=== PATIENT | female | born 1965 | race Caucasian/White ===

== ENCOUNTER 2016-09-08 12:27 | Emergency (ER) | payer MEDICAID ==
--- NOTE | 2016-09-08 12:56 | ED Physician Chart ---
Chief Complaint/HPI - Patient Information Date Seen:: 09/08/16 Time Seen:: 12:33 Chief Complaint:: RIGHT FLANK PAIN History of Present Illness:: THIS IS A 51 YO FEMALE WITH CONCERN ABOUT HER RIGHT FLANK PAIN AND LEFT SHOULDER PAIN WITHOUT NAUSEA OR VOMITING. SHE STATES THAT SHE TOOK SOME OF HER SISTERS ANTIBIOTICS AND MOTRIN WHICH MADE HER FEEL BETTER. SHE IS HAVING FLANK PAIN THAT RADIATES TO HER BACK. SHE DENIES FEVER AND COUGH. Allergies:: Allergies Allergy/AdvReac Type Severity Reaction Status Date / Time No Known Allergies Allergy Verified 09/08/16 12:41 Vitals:: Vital Signs - 8 hr 09/08/16 12:27 Temp 97.5 F HR 87 RR 16 BP 119/81 O2 Sat % 99 Historian:: Patient Review:: Nurse's Note Reviewed Review of Systems - Review of Systems G/U: Other (FLANK PA) Musculoskeletal: Other (LEFT SHOULDER PAIN) Past Medical History - Past Medical History Obtainable: Yes Past Medical History: Other (CHRONIC NECK PAIN) Family Medical History - Family Member Mother History Unknown: Yes Physical Exam - Physical Examination General/Constitutional: Awake, Well-developed, well-nourished, Alert, No distress, GCS 15, Non-toxic appearing, Ambulatory Head: Atraumatic Eyes: Lids, conjuctiva normal, PERRL, EOMI Skin: Nl inspection, No rash, No skin lesions, No ecchymosis, Well hydrated, No lymphadenopathy ENMT: External ears, nose nl, Nasal exam nl, Lips, teeth, gums nl Neck: Full ROM w/o pain, No JVD, No nuchal rigidity, No bruit, No mass, No stridor Other Neck comments:: LEFT POSTERIOR CERVICAL AREA TENDERNESS. Respiratory: Nl effort/Exclusion, Clear to Auscultation, No Wheeze/Rhonchi/Rales Cardio Vascular: RRR, No murmur, gallop, rubs, NL S1 S2 GI: No tenderness/rebounding/guarding, No organomegaly, No hernia, Normal BS's, Nondistended, No mass/bruits, No McBurney tenderness Other comments:: TENDERNESS OF RIGHT FLANK Extremities: No tenderness or effusion, Full ROM, normal strength in all extremities, No edema, Normal digits & nails Neuro/Psych: Alert/oriented, DTR's symmetric, Normal sensory exam, Normal motor strength, Judgement/insight normal, Mood normal, Normal gait, No focal deficits Misc: normal gait, Normal back, No paraspinal tenderness Assessment - Assessment General Assessment: URINARY TRACT INFECTION ED Septic Shock - . Is Septic Shock (SBP<90, OR Lactate>4 mmol\L) present?: No - <6hrs of presentation: Vital Signs: Vital Signs - 8 hr 09/08/16 12:27 Temp 97.5 F HR 87 RR 16 BP 119/81 O2 Sat % 99
[2016-09-08 13:01] LABS: URINE BILIRUBIN NEGATIVE (NEGATIVE); URINE COLOR YELLOW; URINE GLUCOSE (UA) NEGATIVE (NEGATIVE); URINE KETONE NEGATIVE (NEGATIVE)
[2016-09-08 13:02] LABS: URINE BLOOD MODERATE (NEGATIVE); URINE PROTEIN TRACE mg/dL (NEGATIVE); URINE UROBILINOGEN 0.2 E.U./dL (0.2 - 1.0)
[2016-09-08 13:05] LABS: URINE BACTERIA MODERATE /hpf (NONE SEEN); URINE EPITHELIAL CELLS FEW /lpf (FEW)
[2016-09-08 13:09] LABS: % BASOPHILS 0.4 % (0.0-2.0); % EOSINOPHILS 0.1 % (0.0-5.0); % LYMPHOCYTES 16.5 % (20.0-50.0); HEMATOCRIT 33.6 % (35.0-45.0); HEMOGLOBIN 10.9 gm/dL (11.7-15.5); MEAN CELL VOLUME 77.4 fl (81-100); MEAN CORPUSCULAR HEMOGLOBIN 25.1 pg (27.0-31.0); MEAN CORPUSCULAR HGB CONC 32.4 pg (28.0-36.0); MEAN PLATELET VOLUME 9.7 fl; NEUTROPHILE ABSOLUTE 2.9 Th/cmm (1.8-8.0); PLATELET COUNT 236 Th/cmm (150-400); RED BLOOD COUNT 4.34 Mil/cmm (3.80-5.10); RED CELL DISTRIBUTION WIDTH 15.3 % (11.5-20.0); WHITE BLOOD COUNT 4.1 Th/cmm (4.8-10.8)
[2016-09-08 13:19] LABS: INR 1.01 (0.5-1.4); PROTHROMBIN TIME (TEST) 10.5 SECONDS (9.5-11.5)
[2016-09-08 13:23] LABS: ALB/GLOB RATIO 1.1 (1.0-1.8); ALKALINE PHOSPHATASE 513 U/L (34-104); ANION GAP 8.1 (7.0-16.0); BILIRUBIN,TOTAL 0.4 mg/dL (0.3-1.0); BUN - UREA NITROGEN 9 mg/dL (7-25); CALCIUM SERUM 10.8 mg/dL (8.6-10.3); CARBON DIOXIDE 24.5 mEq/L (21.0-31.0); CHLORIDE 103 mEq/L (98-107); CREATININE - SERUM 0.9 mg/dL (0.6-1.2); GLUCOSE 109 mg/dL (70-105); POTASSIUM SERUM 3.6 mEq/L (3.5-5.1); SGOT 397 U/L (13-39); SGPT/ALT 382 U/L (7-52); SODIUM SERUM 132 mEq/L (136-145)
[2016-09-08 14:09] LABS: AMPHETAMINE URINE NEGATIVE (NEGATIVE); BARBITURATES URINE NEGATIVE (NEGATIVE); METHADONE URINE NEGATIVE (NEGATIVE)
--- NOTE | 2016-09-08 14:21 | Diagnostic Imaging Report ---
Exam: CT examination of the pelvis HISTORY: Renal stone. Total DLP equals 384 CTDI equals 7.9 Findings: Multiple contiguous thin section of the abdomen pelvis obtained from lower lung base to pubic symphysis without the administration of intravenous or oral contrast material no prior studies available for comparison. The study demonstrates normal density of the parenchyma. There is evidence for a small cyst in the upper portion of the right lobe of liver measuring 2 cm diameter. The spleen is intact. The pancreas is normal. The gallbladder is normal. Kidneys demonstrate multiple nonobstructing calculi, comparison to old studies would be helpful. Large amount of fecal content is noted in the right colon. The uterus is enlarged with fibroid infiltration. There is a question of the left ovarian cyst which might represent dermoid cyst. Ultrasound examination of pelvis might be helpful. There is no evidence of diverticulitis. No free fluid is noted. The appendix is not visualized. IMPRESSION: 1. Small right lobe liver cyst. 2. Multiple nonobstructing renal calculi bilaterally comparison to old studies for be helpful. 3. Enlarged inhomogeneous uterus question fibroid infiltration. 4.Left ovarian dermoid cyst. 5. Large amount of fecal content
--- NOTE | 2016-09-08 14:24 | Diagnostic Imaging Report ---
Exam: CT examination cervical spine HISTORY: severe cervical disc disease. Total DLP equals 433 CTDI equals 19.4 Axial sections were obtained through the cervical spine region. Additional sagittal and coronal reformatted images are provided. No focal bony lesions are seen. Specifically, no fractures are identified. There is limited visualization of the margins of the cervical spinal cord. No obvious extradural soft tissue abnormalities are seen. The prevertebral soft tissues appear normal. Impression: No acute abnormalities. . If clinically indicated MRI examination might helpful.
== END 2016-09-08 14:40 | disposition home or self-care (01) ==
LOC: ER 12:27
DX: N39.0 Urinary tract infection, site not specified (principal)
CPT/HCPCS: 99285; 96372 ×2; 72125; 74176; 84484; 36415; 80307; 86592; 85025; 85610; 81001; 80320; 82140; 81025; 80053; J1885; J0696

== ENCOUNTER 2017-09-16 17:53 | Inpatient (IN) | payer SELFPAY ==
[2017-09-16 18:47] LABS: PROTHROMBIN TIME (TEST) 10.4 SECONDS (9.5-11.5)
--- NOTE | 2017-09-16 18:53 | ED Physician Chart ---
ED Chief Complaint/HPI - Patient Information Date Seen:: 09/16/17 Time Seen:: 18:10 Chief Complaint:: Chest Pain History of Present Illness:: onset x 12 hours of intermittent, dull, localized, MS type chest pain, cough, dyspnea, and anxiousness; no report of/pt denies trauma, H/As, S/T, neck pain, abd. pain, A/N/V/D/C, fever, chills, or urinary s/s Allergies:: Allergies Allergy/AdvReac Type Severity Reaction Status Date / Time No Known Allergies Allergy Verified 09/08/16 12:41 Vitals:: Vital Signs - 8 hr 09/16/17 09/16/17 18:11 18:17 Temp 99.1 F HR 75 71 RR 16 12 BP 117/73 111/65 O2 Sat % 100 97 Historian:: Patient Review:: Nurse's Note Reviewed ED Review of Systems - Review of Systems General/Constitutional: No fever, No chills, No weight loss, No weakness, No diaphoresis, No edema, No loss of appetite Skin: No skin lesions, No rash, No bruising Head: No headache, No light-headedness Eyes: No loss of vision, No pain, No diplopia ENT: No earache, No nasal drainage, No sore throat, No tinnitus Neck: No neck pain, No swelling, No thyromegaly, No stiffness, No mass noted Cardio Vascular: Chest pain, No palpitations, No PND, No orthopnea, No edema Pulmonary: SOB, Cough, No sputum, No wheezing GI: No nausea, No vomiting, No diarrhea, No pain, No melena, No hematochezia, No constipation, No hematemesis G/U: No dysuria, No frequency, No hematuria, No nacturia Group Segment Consultant: No vaginal discharge, No abnormal vaginal bleed, No contraction Musculoskeletal: No bone or joint pain, No back pain, No muscle pain Endocrine: No polyuria, No polydipsia Psychiatric: Prior psych history, No depression, Anxiety, No suicidal ideation, No homicidal ideation, No auditory hallucination, No visual hallucination Hematopoietic: No bruising, No lymphadenopathy Allergic/Immuno: No urticaria, No angioedema Neurological: No syncope, No focal symptoms, No weakness, No paresthesia, No headache, No seizure, No dizziness, No confusion, No vertigo ED Past Medical History - Past Medical History Obtainable: Yes Past Medical History: Renal stone Family History: HTN Social History: Non Smoker, No Alcohol, No Drug Use, Single Surgical History: None Psychiatricy History: Other (Panic Attacks) Medication: Reviewed Family Medical History - Family Member Mother History Unknown: Yes Living Status: Still Living Other Medical History: no med. prob. ED Physical Exam - Physical Examination General/Constitutional: Awake, Well-developed, well-nourished, Alert, No distress, GCS 15, Non-toxic appearing, Ambulatory Head: Atraumatic Eyes: Lids, conjuctiva normal, PERRL, EOMI Skin: Nl inspection, No rash, No skin lesions, No ecchymosis, Well hydrated, No lymphadenopathy ENMT: External ears, nose nl, TM canals nl, Nasal exam nl, Lips, teeth, gums nl , Oropharynx nl, Tonsils nl Neck: Nontender, Full ROM w/o pain, No JVD, No nuchal rigidity, No bruit, No mass, No stridor Respiratory: Nl effort/Exclusion, Clear to Auscultation, No Wheeze/Rhonchi/Rales Cardio Vascular: RRR, No murmur, gallop, rubs, NL S1 S2, Carotid/Femoral/Distal pulses equal bilaterally GI: No tenderness/rebounding/guarding, No organomegaly, No hernia, Normal BS's, Nondistended, No mass/bruits, No McBurney tenderness : No CVA tenderness Extremities: No tenderness or effusion, Full ROM, normal strength in all extremities, No edema, Normal digits & nails Neuro/Psych: Alert/oriented, DTR's symmetric, Normal sensory exam, Normal motor strength, Judgement/insight normal, Mood normal, Normal gait, No focal deficits Misc: Normal back, No paraspinal tenderness ED Labs/Radiology/EKG Results - Lab Results Comments:: H/H: 5.8/18.4; Ca+: 11.4 - EKG Interpretations EKG Time:: 18:41 Rate & Rhythm: 69; NSR Comments:: non-specific st-t changes ED Septic Shock - . Is Septic Shock (SBP<90, OR Lactate>4 mmol\L) present?: No - <6hrs of presentation: Vital Signs: Vital Signs - 8 hr 09/16/17 09/16/17 18:11 18:17 Temp 99.1 F HR 75 71 RR 16 12 BP 117/73 111/65 O2 Sat % 100 97 ED Reassessment (Disposition) - Reassessment Reassessment Condition:: Improved - Diagnosis Diagnosis:: Anemia; GI Bleed; Menorrhagia; Hyponatremia; Hypercalcemia; Chest Pain; Dysfunctional Uterine Bleeding - Aftercare/Follow up Instructions Aftercare/Follow-Up Instructions:: Counseled pt regarding lab results/diagnosis & need follow up, Counseled pt & family regarding lab results/diagnosis & need follow up - Patient Disposition Discharge/Transfer:: Acute Care w/in this hosp Accepting Physician:: Dr. Casarez Time Called:: 1999 Time Responded:: 20:00 Admitted to:: Telemetry Spoke to:: Dr. Casarez Admitting Medical Physician:: Dr. Casarez Condition at Disposition:: Stable, Improved
[2017-09-16 19:06] LABS: RED CELL DISTRIBUTION WIDTH 18.2 % (11.5-20.0)
[2017-09-16 19:18] LABS: MEAN CORPUSCULAR HGB CONC 31.4 pg (28.0-36.0); MEAN PLATELET VOLUME 9.8 fl; PLATELET COUNT 371 Th/cmm (150-400); WHITE BLOOD COUNT 4.3 Th/cmm (4.8-10.8)
[2017-09-16 19:29] LABS: ANION GAP 9.8 (7.0-16.0); BUN - UREA NITROGEN 15 mg/dL (7-25); CALCIUM SERUM 11.4 mg/dL (8.6-10.3); CARBON DIOXIDE 21.1 mEq/L (21.0-31.0); CHLORIDE 107 mEq/L (98-107); CHOLESTEROL 155 mg/dL (<200); CREATININE - SERUM 0.8 mg/dL (0.6-1.2); CREATININE KINASE 37 U/L (30-223); GFR AFRICAN-AMERICAN > 60.0 ml/min (>90); GFR NON AFRICAN-AMERICAN > 60.0 ml/min; GLUCOSE 99 mg/dL (70-105); HDL -HIGH DENSITY LIPOPROTEIN 46 mg/dL (23-92); POTASSIUM SERUM 3.9 mEq/L (3.5-5.1); SODIUM SERUM 134 mEq/L (136-145); TRIGLYCERIDES 100 mg/dL (<150)
[2017-09-16 19:47] LABS: DDIMER QUANT 332 ng/mL (100-400)
[2017-09-16 19:59] LABS: BAND NEUTROPHILE 0 % (0-10); BASOPHIL 0 % (0-3); EOSINOPHIL 0 % (0-5); LYMPHOCYTE 44 % (20-50); MONOCYTE 3 % (2-10); NEUTROPHILS 53 % (40-80)
[2017-09-16] MEDS ORDERED: Hydrocodone/APAP 5mg/325mg Tab PO PRN (21:24)
[2017-09-16 21:37] LABS: HEMATOCRIT 18.4 % (41.0-60); HEMOGLOBIN 5.8 gm/dL (12-16)
[2017-09-16 21:38] LABS: MEAN CELL VOLUME 55.7 fl (81-100); MEAN CORPUSCULAR HEMOGLOBIN 17.5 pg (27.0-31.0)
[2017-09-17 00:26] VITALS: BP 115/64
[2017-09-17 06:03] LABS: HEMATOCRIT 24.1 % (41.0-60)
[2017-09-17 06:05] LABS: HEMOGLOBIN 7.6 gm/dL (12-16)
--- NOTE | 2017-09-17 10:51 | Diagnostic Imaging Report ---
Pelvic ultrasound HISTORY: Menorrhagia Transabdominal and transvaginal sonographic technique utilized. There is a normal uterine size (8.4 x 6.3 x 7.4 cm). There is a heterogeneous myometrium. Findings may be associated with early fibroid changes or possibly adenomyosis. No discrete focal lesions are defined. Several sonolucent foci seen in the region of the cervix consistent with nabothian cysts. The largest measures 1.9 cm The endometrium appears thickened and somewhat heterogeneous (2.4 cm). Findings should be correlated clinically and with the menstrual status. The right ovary measures 3.7 x 2.7 x 3.7 cm. This is associated with several cysts. The largest measures 3.1 cm. The left ovary is mildly enlarged (4.2 x 3.1 x 3.2 cm. This is associated with an approximate 3.1 cm cyst. Small amount of free fluid noted in the cul-de-sac region of the pelvis. IMPRESSION: 1. Thickened somewhat heterogeneous endometrium (2.4 cm). The finding should be correlated clinically and with the menstrual status 2. Normal-sized uterus with a heterogeneous myometrium. The changes may be associated with early fibroid changes or possibly adenomyosis. 3. Bilateral ovarian cystic changes. If necessary, a follow-up exam would provide assessment of a physiologic basis. 4. Small amount of free fluid in the cul-de-sac region. Again, the finding may be on a physiologic basis and should be correlated clinically and with the ovulation cycle 5. Sonolucent foci in the region of the cervix consistent with nabothian cysts.
--- NOTE | 2017-09-17 12:37 | History & Physical ---
ADMIT DATE: 09/17/2017 PATIENT'S IDENTIFICATION: A 52-year-old female. CHIEF COMPLAINT: Chest pain. HISTORY OF PRESENT ILLNESS: A 52-year-old female with no significant cardiac history, presented to Emergency Room for chest pain evaluation and noted to have hemoglobin of 5.8. The patient is advised to be admitted. The patient states that the patient has menorrhagia for many years and the patient did have blood transfusion in the past. The patient was advised to have hysterectomy, but the patient did not go. PAST MEDICAL HISTORY: None. MEDICATIONS AT HOME: Wellbutrin. ALLERGIES: None. SOCIAL HISTORY: The patient lives with the family. The patient has no history of smoking cigarette, alcohol, or drug use. FAMILY MEDICAL HISTORY: Negative for diabetes, hypertension, kidney disease, liver disease. PHYSICAL EXAMINATION: GENERAL: The patient is alert, awake, oriented, lying in the bed without any acute distress. VITAL SIGNS: Temperature 98, pulse is 74, respiratory rate 18, blood pressure 106/67. HEENT: Normocephalic, atraumatic. Extraocular muscles are intact. Tongue more pink and coated. Poor dentition noted. NECK: Supple, no JVD. No hepatojugular reflex. No lymphadenopathy, thyromegaly, or carotid bruit. HEART: Both heart sounds are regular. No S3, no S4, no murmur. CHEST AND LUNGS: Equal in expansion, no expiratory wheezing. ABDOMEN: Soft. No guarding, no rigidity. Bowel sounds are present. No palpable mass. EXTREMITIES: No edema, no cyanosis, no clubbing. Peripheral pulses +2. No calf tenderness noted. NEUROLOGIC: Nonfocal. CLINICAL IMPRESSION: 1. Severe anemia. 2. Chest pain secondary to severe anemia. 3. Menorrhagia with abnormal pelvic ultrasound. PLAN: The patient is to give blood transfusion and the patient will be discharged to home and advised the patient to see bearing machine operator, hence considering we do not have gynecology services available at [facility]. I did discuss with the patient and she is agreeable to have followup with bearing machine operator as an outpatient. Pelvic ultrasound report has been given as well. JOB# [id number]
[2017-09-17 14:01] LABS: HEMOGLOBIN 10.2 gm/dL (12-16)
[2017-09-17 14:04] LABS: HEMATOCRIT 31.9 % (41.0-60)
== END 2017-09-17 15:00 | disposition home or self-care (01) | DRG 378 ==
LOC: ER 17:53 → ICU 22:22
PROVIDERS: ADMIT Internal Medicine; ATTEND Internal Medicine
PROC: 30233N1 Transfusion of Nonautologous Red Blood Cells into Peripheral Vein, Percutaneous Approach (ICD-10-PCS; principal; 2017-09-16)
DX: K92.2 Gastrointestinal hemorrhage, unspecified (principal); E87.1 Hypo-osmolality and hyponatremia; N92.0 Excessive and frequent menstruation with regular cycle; D64.9 Anemia, unspecified; E83.52 Hypercalcemia; N93.8 Other specified abnormal uterine and vaginal bleeding; Z82.49 Family history of ischemic heart disease and other diseases of the circulatory system
CPT/HCPCS: 36415-UA; 76856-TC; 80048-TC; 80061-TC; 82550-TC; 83880-TC; 84484-TC; 84703-TC; 85007-TC; 85014-TC; 85018-TC; 85025-TC; 85379-TC; 85610-TC; 86850-TC; 86900-TC; 86901-TC; 86922-TC; 93005; 94760; 96374; 96375; C9113; P9016; Z7610

== ENCOUNTER 2017-10-22 18:11 | Emergency (ER) | payer SELFPAY ==
[2017-10-22 19:17] LABS: URINE SOURCE CLEAN C
[2017-10-22 19:18] LABS: URINE BILIRUBIN NEGATIVE (NEGATIVE); URINE BLOOD TRACE (NEGATIVE); URINE GLUCOSE (UA) NEGATIVE (NEGATIVE); URINE KETONE NEGATIVE (NEGATIVE); URINE LEUKOCYTE ESTERASE LARGE (NEGATIVE); URINE MICROSCOPIC INDICATED? YES; URINE NITRATE NEGATIVE (NEGATIVE); URINE PH 5.5 (4.6 - 8.0); URINE PROTEIN NEGATIVE (NEGATIVE); URINE UROBILINOGEN 0.2 E.U./dL (0.2 - 1.0)
[2017-10-22 19:25] LABS: URINE CLARITY CLEAR (CLEAR); URINE COLOR YELLOW; URINE RBC 0-2 /hpf (0-5)
--- NOTE | 2017-10-22 19:25 | ED Physician Chart ---
ED Chief Complaint/HPI - Patient Information Date Seen:: 10/22/17 Time Seen:: 18:55 Chief Complaint:: flank pain and abdominal pain History of Present Illness:: Patient's had bilateral flank pain and bilateral upper abdominal pain and dysuria for last 3 days. No chills or fever. Allergies:: Allergies Allergy/AdvReac Type Severity Reaction Status Date / Time No Known Allergies Allergy Verified 09/08/16 12:41 Vitals:: Vital Signs - 8 hr 10/22/17 18:20 Temp 97.7 F HR 94 RR 18 BP 115/67 O2 Sat % 99 Historian:: Patient ED Review of Systems - Review of Systems General/Constitutional: No fever, No chills Skin: No skin lesions Head: No headache Eyes: No loss of vision ENT: No earache Neck: No neck pain Cardio Vascular: No chest pain Pulmonary: No SOB, No cough GI: No nausea, No vomiting, No diarrhea, Pain G/U: Dysuria Musculoskeletal: No bone or joint pain, Back pain, No muscle pain Endocrine: No polyuria, No polydipsia Psychiatric: No prior psych history Hematopoietic: No bruising Allergic/Immuno: No urticaria Neurological: No syncope, No focal symptoms ED Past Medical History - Past Medical History Past Medical History: Other (bilateral kidney stones) Family History: None Social History: Non Smoker, Alcohol, Other (occasional alcohol consumption) Surgical History: other (2 blood transfusions) Psychiatricy History: Depression, Other (anxiety) Family Medical History - Family Member Mother History Unknown: Yes Living Status: Still Living ED Physical Exam - Physical Examination General/Constitutional: Awake, Well-developed, well-nourished, Alert, No distress, GCS 15, Non-toxic appearing, Ambulatory Head: Atraumatic Eyes: Lids, conjuctiva normal, PERRL, EOMI Skin: Nl inspection, No rash, No skin lesions, No ecchymosis, Well hydrated, No lymphadenopathy ENMT: External ears, nose nl, Nasal exam nl, Lips, teeth, gums nl Neck: Nontender, Full ROM w/o pain, No JVD, No nuchal rigidity, No bruit, No mass, No stridor Respiratory: Nl effort/Exclusion, Clear to Auscultation, No Wheeze/Rhonchi/Rales Cardio Vascular: RRR, No murmur, gallop, rubs, NL S1 S2 GI: No organomegaly, No hernia, Normal BS's, Nondistended, No mass/bruits, No McBurney tenderness Other GI comments:: Right upper quadrant tenderness : No CVA tenderness Extremities: No tenderness or effusion, Full ROM, normal strength in all extremities, No edema, Normal digits & nails Neuro/Psych: Alert/oriented, DTR's symmetric, Normal sensory exam, Normal motor strength, Judgement/insight normal, Mood normal, Normal gait, No focal deficits Misc: Normal back Other Misc comments:: Left flank tenderness ED Labs/Radiology/EKG Results - Lab Results Results: Laboratory Results - last 24 hr 10/22/17 18:41 Urine Source CLEAN C Urine Color YELLOW Urine Clarity CLEAR Urine pH 5.5 Ur Specific [place] 1.010 Urine Protein NEGATIVE Urine Glucose (UA) NEGATIVE Urine Ketones NEGATIVE Urine Blood TRACE Urine Nitrate NEGATIVE Urine Bilirubin NEGATIVE Urine Urobilinogen 0.2 Ur Leukocyte Esterase LARGE H Urine RBC 0-2 Urine WBC 6-10 H Ur Epithelial Cells FEW Urine Bacteria FEW ED Assessment - Assessment General Assessment: Patient's urinalysis showed 6-10 WBCs with large leukocyte esterase. Patient's CAT scan result was 09/08/2016 showed multiple nonobstructing renal calculi bilaterally, left ovarian dermoid cyst and large amount of fecal content. There is no mention of gallstones. Patient has taken iron for her anemia perhaps at least partially causing her constipation. Repeating the CAT scan today does not appear appropriate as there is a very high chance that it will not show anything different from the previous CAT scan. Patient will be treated with Levaquin 500 milligrams daily for 8 days with the first dose given in the emergency room tonight before discharge. ED Septic Shock - . Is Septic Shock (SBP<90, OR Lactate>4 mmol\L) present?: No - <6hrs of presentation: Vital Signs: Vital Signs - 8 hr 10/22/17 18:20 Temp 97.7 F HR 94 RR 18 BP 115/67 O2 Sat % 99 ED Reassessment (Disposition) - Reassessment Reassessment Condition:: Unchanged - Diagnosis Diagnosis:: Urinary tract infection; history kidney stones - Aftercare/Follow up Instructions Aftercare/Follow-Up Instructions:: Refer to Discharge Instructions - Patient Disposition Discharge/Transfer:: Home
[2017-10-22 19:26] LABS: URINE BACTERIA FEW /hpf (NONE SEEN); URINE EPITHELIAL CELLS FEW /lpf (FEW)
== END 2017-10-22 20:10 | disposition home or self-care (01) ==
LOC: ER 18:11
DX: N39.0 Urinary tract infection, site not specified (principal); F32.9 Major depressive disorder, single episode, unspecified; Z87.442 Personal history of urinary calculi
CPT/HCPCS: 81001-TC; Z7502